=== PATIENT | female | born 1955 | race Caucasian/White ===

== ENCOUNTER 2019-07-11 16:44 | Emergency (ER) | payer OTHER ==
[~2019-07-11] VITALS: Ht 152.4 cm; Wt 103.4 kg
[2019-07-11 16:48] VITALS: BP_SYST 158
--- NOTE | 2019-07-11 16:56 | NUR ---
Patient to ER bed 07 to gown for evaluation. Side rails up.
--- NOTE | 2019-07-11 17:02 | NUR ---
Pt brought by self,A&Ox 4 , pt presents to ER with R wrist pain and swelling after she fell from bed, skin pink and warm,cap refill <3,no open wounds noted.
--- NOTE | 2019-07-11 17:08 | NUR ---
ER ANDIE Reno at bedside examining patient
[2019-07-11] MEDS ORDERED: HYDROcodone/ACETAMIN 5-325 MG TAB (NORCO/ VICODIN) PO ONE (17:15)
--- NOTE | 2019-07-11 17:50 | NUR ---
sling was applied to right arm
[2019-07-11] MEDS ORDERED: traMADol HCL HCL 50 MG TABLET (ULTRAM) PO ONE (18:00)
[2019-07-11 18:09] VITALS: BP_SYST 132
--- NOTE | 2019-07-11 18:10 | NUR ---
Patient given written and verbal discharge instructions and verbalizes understanding. ER MD discussed with patient the results and treatment provided. Patient in stable condition. ID arm band removed. Rx of Hydrochloride 50mg given. Patient educated on pain management and to follow up with PMD. Pain Scale 3/10 tolerable for patient. Opportunity for questions provided and answered. Medication side effect fact sheet provided.
== END 2019-07-11 18:09 | disposition home or self-care (01) ==
LOC: SED 16:44
DX: S52.591A Other fractures of lower end of right radius, initial encounter for closed fracture (principal); M25.562 Pain in left knee; R03.0 Elevated blood-pressure reading, without diagnosis of hypertension; W06.XXXA Fall from bed, initial encounter; Y93.89 Activity, other specified; Y92.89 Other specified places as the place of occurrence of the external cause; Y99.8 Other external cause status
CPT/HCPCS: 73564; 99283